=== PATIENT | female | born 2000 | race Caucasian/White ===

== ENCOUNTER 2024-07-08 14:41 | Emergency (ER) | payer OTHER ==
[2024-07-08 15:32] LABS: #Basophils 0.03 10x3/uL (0.0-0.2); #Eosinophils Less than 0.03 10x3/uL (0.0-0.7); %Basophils 0.7 % (0.0-1.0); %Eosinophils 0.2 % (0.0-10.0); %Lymphocytes 43.2 % (21.0-51.0); %Monocytes 9.6 % (0.0-10.0); %Neutrophils 46.1 % (42.0-75.0); Hematocrit 42.1 % (36.0-47.0); Hemoglobin 14.3 g/dL (12.0-16.0); Mean Corpuscular Hemoglobin 30.3 pg (27.0-31.0); Mean Corpuscular Volume 89.2 fL (78.0-98.0); Mean Platelet Volume 9.2 fL (7.4-10.4); Platelet Count 291 10x3/uL (130-400); Red Blood Cell (RBC) Count 4.72 mill/uL (4.20-5.40)
[2024-07-08 15:45] LABS: BHCG - Serum Negative (NEGATIVE); Pregs Control Background? CLEAR/WHITE (CLR/WHITE); Pregs Control Bar Appear? YES (CONTROL BAR)
[2024-07-08 15:49] LABS: ALT (SGPT) 14 U/L (8-55); AST (SGOT) 22 U/L (5-34); Albumin 4.5 g/dL (3.5-5.0); Alkaline Phosphatase 55 U/L (40-110); Anion Gap 13 mmol/L (10-20); BUN (Urea Nitrogen) 7 mg/dL (7.0-18.7); Bilirubin, Total 0.8 mg/dL (0.2-1.2); Calc. Creatinine Clearance 0 mL/min (70-130); Calcium 9.5 mg/dL (7.8-10.44); Carbon Dioxide 24 mmol/L (22-29); Chloride 105 mmol/L (98-107); Estimated GFR 96; Globulin 3.6 g/dL (2.4-3.5); Glucose 87 mg/dL (70-105); Lipase 19 U/L (8-78); Potassium 3.6 mmol/L (3.5-5.1); Protein, Total 8.1 g/dL (6.0-8.3); Sodium 138 mmol/L (136-145)
[2024-07-08 15:56] LABS: Bacteria/HPF None Seen HPF (None Seen); Bilirubin Negative (Negative); Blood, Urine Negative (Negative); CAUTI Indications for Culture Pelvic or flank pain; Clarity Clear (Clear); Glucose, Urine (Dipstick) Normal (Negative); Ketone, Urine Trace mg/dL (Negative); Leukocyte Negative Leu/uL (Negative); Nitrite Negative (Negative); Protein, Urine (Dipstick) Negative (Neg-Trace); RBC/HPF 0-3 HPF (0-3); Specific Gravity, Urine 1.008 (1.002-1.036); Squamous Epithelial 0-3 HPF (0-3); Urobilinogen Normal mg/dL (Less than 2); WBC/HPF 0-3 HPF (0-3)
[2024-07-08 16:00] LABS: Urine Culture Reflex No No
[2024-07-08] MEDS ORDERED: Dicyclomine 20 MG TAB ONE (16:53)
[2024-07-08] MEDS ORDERED: Ondansetron ODT 4 MG TAB ONE (16:53)
== END 2024-07-08 17:57 | disposition home or self-care (01) ==
LOC: ERS 14:41
DX: A08.4 Viral intestinal infection, unspecified (principal); R55 Syncope and collapse; F17.290 Nicotine dependence, other tobacco product, uncomplicated
CPT/HCPCS: 36415; 80053; 81001; 83690; 84703; 85025; 87428; 93005; 99284; Q0162